=== PATIENT | male | born 1980 | race Hispanic/Latino ===

== ENCOUNTER 2017-09-17 09:23 | Emergency (ER) | payer OTHER | END 2017-09-17 10:08 | disposition home or self-care (01) | LOC: EDH 09:23 | DX: S43.492A Other sprain of left shoulder joint, initial encounter (principal); S50.02XA Contusion of left elbow, initial encounter; Z72.0 Tobacco use; V49.49XA Driver injured in collision with other motor vehicles in traffic accident, initial encounter; Y93.89 Activity, other specified; Y92.89 Other specified places as the place of occurrence of the external cause; Y99.8 Other external cause status | CPT/HCPCS: 73030; 73090 ==

== ENCOUNTER 2019-04-04 17:41 | Emergency (ER) | payer OTHER ==
[2019-04-04] MEDS ORDERED: ACETAMINOPHEN EXTRA STRENGTH 500 MG TABLET ONE (18:09)
== END 2019-04-04 19:16 | disposition home or self-care (01) ==
LOC: EDH 17:41
DX: S00.03XA Contusion of scalp, initial encounter (principal); S06.0X0A Concussion without loss of consciousness, initial encounter; Z88.6 Allergy status to analgesic agent; Z72.0 Tobacco use; W50.1XXA Accidental kick by another person, initial encounter; Y93.89 Activity, other specified; Y92.511 Restaurant or cafe as the place of occurrence of the external cause; Y99.8 Other external cause status

== ENCOUNTER 2019-04-07 11:29 | Emergency (ER) | payer SELFPAY | END 2019-04-07 12:08 | disposition home or self-care (01) | LOC: EDH 11:29 | DX: R51 Headache (principal); R11.0 Nausea; R42 Dizziness and giddiness; Z88.6 Allergy status to analgesic agent; Z72.0 Tobacco use | CPT/HCPCS: 99281 ==

== ENCOUNTER 2024-07-14 12:17 | Emergency (ER) | payer BC ==
[~2024-07-14] VITALS: Ht 175.3 cm; Wt 102.5 kg
--- NOTE | 2024-07-14 13:08 | NUR ---
[id number] PT ASSIGNED TO FAST TRACK AT THIS TIME
[2024-07-14 13:09] LABS: RAPID GROUP A STREP negative (NEGATIVE)
[2024-07-14 13:19] LABS: INFLUENZA TYPE A Negative For Type A (NEGATIVE); INFLUENZA TYPE B Negative For Type B (NEGATIVE)
[2024-07-14 13:27] LABS: SARS-CoV-2, RNA, NAAT POSITIVE SARS CoV-2 (NEGATIVE)
[2024-07-14] MEDS ORDERED: METH4TAB3 PO (14:04)
[2024-07-14] MEDS ORDERED: AZIT250T9 PO (14:04)
--- NOTE | 2024-07-14 14:05 | ERN ---
General Chief Complaint: Cough Stated Complaint: FLU SYMPTOMS Time Seen by MD: 12:21 Time Seen by Midlevel: 12:21 Source: patient History of Present Illness Initial Comments 43-year-old male with a past medical history of type 2 diabetes and hypertension presenting to the emergency department for evaluation of flu-like symptoms that started two days ago. Symptoms consist of nasal congestion, generalized body weakness, and chills. Patient has coworkers are sick with similar symptoms. Patient reports taking lisinopril 5 mg daily. He denies taking any medication for his diabetes. Allergies: Coded Allergies: aspirin (Unverified Allergy, Unknown, 04/04/19) Home Meds Active Scripts Azithromycin (Azithromycin) 250 Mg Tablet, 1 TAB PO AD for 5 Days, #6 TAB 0 Refills 2 the first day followed by 1 for days 2-5 Prov:DARIO VARELA 07/14/24 Methylprednisolone (Medrol) 4 Mg Tab.ds.pk, 1 TAB PO AD for 6 Days, #21 TAB 0 Refills 6 on day 1 then reduce by one tablet daily until gone Prov:DARIO VARELA 07/14/24 Past Medical History Past Medical History: Diabetes-Type II, Hypertension Past Surgical History: Other Surgical History Other: HEAD ROS Dictation CONSTITUTIONAL: Negative except for HPI HEAD/FACE: Negative except for HPI EENT: Negative except for HPI RESPIRATORY: Negative except for HPI GASTROINTESTINAL/ABDOMINAL: Negative except for HPI GENITOURINARY: Negative except for HPI MUSCULOSKELETAL: Negative except for HPI INTEGUMENTARY: Negative except for HPI NEUROLOGICAL/PSYCH: Negative except for HPI HEMATOLOGIC/LYMPHATIC: Negative except for HPI All Systems Negative, Except as noted above. 13 point review of systems assessed and all negative except for above. Physical Exam Physical Exam Dictation Vital Signs reviewed General Appearance: Alert, oriented x 3, no acute distress, well developed, nourished. Head and Face: non-traumatic. Eyes: PERRL, pink conjunctivas, eyelid no trauma, anterior chamber with arcus senilis. Ears: Pinnas intact and no signs of trauma or erythema ear canals clear and no discharge TM no erythema Nose: No discharge, no bleeding. Oropharynx: Mouth normal, tongue pink, pharynx clear,no erythema, tonsils no exudates, no abscesses noted, mucous membrane moist Neck: Supple, non-tender, no thyromegaly, no masses, no JVD, no bruits Breast:Deferred Chest:No tenderness, no crepitus, no paradoxical movement, no retractions Lungs:Clear, well-ventilated, symmetric, no rales, no wheezing, no rhonchi, no stridor, good breath sounds bilaterally Heart: Regular rate, regular rhythm, no murmur, no gallops Vascular: no peripheral edema, Abdomen: Soft, positive bowel sounds, nondistended, no guarding, nontender, no rebound, no masses no hepatomegaly, no splenomegaly, no Card's sign, no hernias. Rectal: Deferred Genital: Deferred Neurological: Normal speech, motor function intact, sensory function intact Musculoskeletal: Neck nontender, full range of motion, back nontender, full range of motion, Extremities: nontender, full range of motion Skin: Color pink, dry, no turgor, no rash, no lacerations, no abrasions, no contusions. Lymphatic: Deferred Results Laboratory and Microbiology Lab and Micro Result Laboratory Tests Test 07/14/24 12:39 Influenza Type A Antigen Negative For Type A Influenza Type B Antigen Negative For Type B SARS-CoV-2, RNA, NAAT POSITIVE SARS CoV-2 Group A Streptococcus Rapid negative (NEGATIVE) Labs Reviewed?: Yes MDM MDM: Differential diagnosis: Viral illness, upper respiratory infection, strep There are no social concerns with this patient. Prescription drug management Prescriptions will include: Medrol pack, azithromycin Medical management and examination interpretation discussions were had by me with other qualified healthcare professionals as indicated for the patient's care. ED Course Orders Procedure Category Date Status Time Covid Rna Naat LAB 07/14/24 Complete 12:38 Influenza Type A & B, LAB 07/14/24 Complete Rapid 12:38 Rapid (Group A Strep) LAB 07/14/24 Complete 12:38 Vital Signs Date Time Temp Pulse Resp B/P (MAP) Pulse Ox O2 Delivery O2 Flow Rate FiO2 07/14/24 12:35 99.0 101 18 175/108 96 Room Air 0 DX & DISP Disposition: Discharge Departure Impression: Primary Impression: COVID-19 Condition: Stable Scripts Azithromycin (Azithromycin) 250 Mg Tablet 1 TAB PO AD for 5 Days, #6 TAB 0 Refills 2 the first day followed by 1 for days 2-5 Prov: DARIO VARELA 07/14/24 Methylprednisolone (Medrol) 4 Mg Tab.ds.pk 1 TAB PO AD for 6 Days, #21 TAB 0 Refills 6 on day 1 then reduce by one tablet daily until gone Prov: DARIO VARELA 07/14/24 Additional Instructions: You have tested positive for COVID-19. Continue with Tylenol and Motrin as needed. I have given you a prescription for steroids and azithromycin. Follow up with your primary care doctor in 2-3 days for repeat evaluation. Referrals: SELF,REFERRAL (PCP) Time of Disposition: 14:03 I have reviewed the case, and I agree with, Diagnosis and Plan I performed the substantive portion of the visit. I have reviewed and personally made and approve the management plan that is documented in the note by myself or the MARCO ANTONIO. I acknowledge for responsibility for the patient's management plan. DARIO VARELA Jul 14, 2024 14:05
[2024-07-14] MEDS: Solu-medROL 125MG VIAL ONE (14:43)
[2024-07-14 14:45] VITALS: BP 161/93; PULSE 90; RESP 18; TEMP 98.7; O2SAT 96
== END 2024-07-14 14:55 | disposition home or self-care (01) ==
LOC: EDH 12:17
DX: U07.1 COVID-19 (principal); E11.9 Type 2 diabetes mellitus without complications; I10 Essential (primary) hypertension; Z79.899 Other long term (current) drug therapy; Z88.6 Allergy status to analgesic agent; Z98.890 Other specified postprocedural states
CPT/HCPCS: 87635; 87804; 87880; 99283; J2919